=== PATIENT | male | born 1950 | race Caucasian/White ===

== ENCOUNTER → 2018-08-05 | Outpatient (CLI) | payer OTHER ==
[~2018-08-05] MED LIST: LEVO750 PO; SAW PALMETTO; Zithromax500 MG PO
== END | disposition home or self-care (01) ==
LOC: PLD 14:20 → LAB SHORT 14:20
DX: D48.5 Neoplasm of uncertain behavior of skin (principal)
CPT/HCPCS: 88305

== ENCOUNTER → 2019-05-09 | Outpatient (CLI) | payer OTHER ==
[2019-05-09 11:37] LABS: BASOPHILS ABSOLUTE AUTO 0.05 K/mm3 (0.00-0.23); BASOPHILS PERCENT AUTO 1 % (0-2); EOSINOPHILS ABSOLUTE AUTO 0.18 K/mm3 (0.00-0.68); EOSINOPHILS PERCENT AUTO 2 % (0-6); Hematocrit 40.3 % (37.0-53.0); Hemoglobin 14.1 g/dL (13.5-17.5); IMMATURE GRAN ABSOLUTE AUTO 0.04 K/mm3 (0.00-0.10); IMMATURE GRAN PERCENT AUTO 0 % (0-1); LYMPHOCYTES ABSOLUTE AUTO 1.25 K/mm3 (0.84-5.20); LYMPHOCYTES PERCENT AUTO 13 % (21-46); MONOCYTES ABSOLUTE AUTO 0.82 K/mm3 (0.16-1.47); MONOCYTES PERCENT AUTO 8 % (4-13); Mean Corpuscular HGB 31.5 pg (26.0-34.0); Mean Corpuscular Volume 90 fL (80-100); Mean Platelet Volume 8.7 fL (9.1-12.4); NEUTROPHILS ABSOLUTE AUTO 7.54 K/mm3 (1.96-9.15); NEUTROPHILS PERCENT AUTO 76 % (41-73); Platelet Count 288 K/mm3 (150-400); RDW Coefficient Variation 11.4 % (11.7-14.2); RDW Standard Deviation 37.7 fL (35.1-46.3); Red Blood Cell Count 4.47 M/mm3 (4.30-5.90); White Blood Cell Count 9.88 K/mm3 (4.00-11.30)
[2019-05-09 11:53] LABS: Alanine Aminotransfer (ALT/SGP 17 U/L (12-78); Albumin, Blood 3.3 g/dL (3.4-5.0); Albumin/Globulin Ratio 0.7 (0.8-1.8); Alk Phos 126 U/L (40-126); Anion Gap 11 mmol/L (6-16); Aspartate Aminotrans (AST/SGOT 22 U/L (12-37); Bilirubin, Total 0.3 mg/dL (0.1-1.0); Blood Urea Nitrogen 15 mg/dL (8-24); Bun/Creatinine Ratio 17.4 (12.0-20.0); CO2, Blood 24 mmol/L (21-32); Calcium, Blood 8.9 mg/dL (8.5-10.1); Chloride, Blood 104 mmol/L (98-108); Creatinine, Blood 0.86 mg/dL (0.60-1.20); Globulin, Blood 4.9 g/dL (2.2-4.0); Glomerular Filtration Rate >60 (60-); Glucose, Blood 108 mg/dL (70-99); Potassium, Blood 3.7 mmol/L (3.5-5.5); Sodium, Blood 139 mmol/L (136-145); Total Protein, Blood 8.2 g/dL (6.4-8.2)
== END ==
LOC: LAB SHORT 11:33 → LAB EV 11:33
PROVIDERS: Emergency Medicine
DX: C78.7 Secondary malignant neoplasm of liver and intrahepatic bile duct (principal); K86.89 Other specified diseases of pancreas; R10.9 Unspecified abdominal pain
CPT/HCPCS: 80053; 85025; 86301

== ENCOUNTER → 2019-05-18 | Outpatient (CLI) | payer OTHER ==
[~2019-05-18] MED LIST changes: +IBUP400 PO; +MORPHINE; +Rapaflo4 MG PO; +UROXATRAL PO
== END | disposition home or self-care (01) ==
LOC: LAB EV 17:00 → LAB SHORT 17:00
DX: N39.0 Urinary tract infection, site not specified (principal)
CPT/HCPCS: 87086

== ENCOUNTER 2019-05-30 08:00 | Day surgery (SDC) | payer OTHER ==
[~2019-05-30 08:00] MED LIST changes: -IBUP400 PO; -MORPHINE; -Rapaflo4 MG PO; -UROXATRAL PO
--- NOTE | 2019-05-30 11:45 | NUR ---
ARRIVAL TO UNIT PT ARRIVES AND TRANSFERS SELF TO HOSP BED VIA SCOOTING. BAND AID WNL TO L SIDE. PUNCTURE SITE ON L ABD WNL. NEITHER SITES WITH DRAINAGE. ABD TENDER. LUNGS CLEAR. PT USES URINAL TO VOID, CLEAR URINE.
--- NOTE | 2019-05-30 12:53 | NUR ---
PT RESTING IN BED WATCHING TV. DENIES CHANGES IN PAIN OR ABD DISTENTION. TOLERATING SIPS OF WATER. VSS.
--- NOTE | 2019-05-30 13:48 | NUR ---
DISCHARGE PT D/C'D AFTER MONITORING FOR 2 HOURS. BAND AID SITE AND PUNCTURE SITE CHECKED AGAIN. WNL. VSS. PAIN TOLERABLE AND REPORTED "SORE".
[2019-06-06] MEDS ORDERED: Rapaflo4 MG PO (14:11)
[2019-06-06] MEDS ORDERED: IBUP400 PO (14:12)
[2019-06-06] MEDS ORDERED: MORPHINE (14:12)
[2019-06-09] MEDS ORDERED: UROXATRAL PO (09:15)
== END 2019-06-14 22:35 | disposition home or self-care (01) ==
LOC: CT 08:00
DX: K86.89 Other specified diseases of pancreas (principal); C78.7 Secondary malignant neoplasm of liver and intrahepatic bile duct; R59.1 Generalized enlarged lymph nodes; M19.90 Unspecified osteoarthritis, unspecified site; J45.909 Unspecified asthma, uncomplicated; N40.0 Benign prostatic hyperplasia without lower urinary tract symptoms; Z79.899 Other long term (current) drug therapy
CPT/HCPCS: 47000; 77012; 88307; 88341; 88342

== ENCOUNTER 2019-06-09 07:54 | Day surgery (SDC) | payer OTHER ==
[~2019-06-09] VITALS: Ht 172.7 cm; Wt 80.7 kg
[~2019-06-09 07:54] MED LIST changes: +IBUP400 PO; +MORPHINE; +Rapaflo4 MG PO
[2019-06-09] MEDS ORDERED: UROXATRAL PO (09:15)
--- NOTE | 2019-06-09 09:17 | NUR ---
History, Chart, Medications and Allergies reviewed before start of procedure. Patient confirms NPO status and agrees with scheduled surgery. Lungs clear T/O to Auscultation. Patient States Post-Procedure ride home has been arranged. Patient reports completing Chlorhexadine shower X2 prior to admission to hospital. PATIENT REPORTS PAIN IN HIS ABDOMEN AT BASELINE, "FEELS LIKE A CONSTANT STOMACH ACHE". PATIENT HAS READING GLASSES PRESENT AT ADMIT ONLY, NO HEARING DEVICES, DENTURES, JEWELRY OR CONTACTS.
--- NOTE | 2019-06-09 09:42 | NUR ---
PATIENT UP TO BR FOR UNMEASURED VOID.
--- NOTE | 2019-06-09 10:03 | NUR ---
[employer] REPORT COMPLETED AT BEDSIDE WITH JAYSON FLORES.
--- NOTE | 2019-06-09 12:59 | NUR ---
TOOK OVER PATIENT CARE FROM JAYSON MARTINEZ. AFTER REPORT WAS GIVEN.
--- NOTE | 2019-06-09 13:40 | NUR ---
Patient up to Ambulate independently. Gait steady. Discharge instructions reviewed with patient. Patient verbalizes understanding. Copy given to patient to take home. Patient States Post-Procedure ride home has been arranged. Discharged via wheelchair to private car for ride home.
== END 2019-06-09 13:42 | disposition home or self-care (01) ==
LOC: ORSCMMR 07:54 → ORD 10:30 → ORSCMMR 10:30
PROVIDERS: Surgery
PROC: 0JH60WZ Insertion of Totally Implantable Vascular Access Device into Chest Subcutaneous Tissue and Fascia, Open Approach (ICD-10-PCS; principal; 2019-06-09 10:30)
DX: C25.2 Malignant neoplasm of tail of pancreas (principal)
CPT/HCPCS: 77001; A9270-GY; C1788; J0690; J1642; J2250; J2405; J3010; J7120

== ENCOUNTER 2019-08-02 23:41 | Emergency (ER) | payer OTHER ==
[~2019-08-02] VITALS: Ht 172.7 cm; Wt 73.5 kg
[~2019-08-02 23:41] MED LIST changes: +UROXATRAL PO
== END 2019-08-03 05:31 | disposition home or self-care (01) ==
LOC: ER 23:41
DX: Z46.6 Encounter for fitting and adjustment of urinary device (principal); Z85.46 Personal history of malignant neoplasm of prostate; Z85.07 Personal history of malignant neoplasm of pancreas
CPT/HCPCS: 51700; 51702; 99283-25

== ENCOUNTER 2019-08-17 15:35 | Emergency (ER) | payer OTHER ==
[~2019-08-17 15:35] MED LIST changes: +Cipro500 MG PO
== END 2019-08-17 16:53 | disposition left against medical advice (07) ==
LOC: ER 15:35
DX: Z53.21 Procedure and treatment not carried out due to patient leaving prior to being seen by health care provider (principal)

== ENCOUNTER 2020-03-07 19:47 | Emergency (ER) | payer OTHER ==
[~2020-03-07] VITALS: Ht 170.2 cm; Wt 74.8 kg
[2020-03-07 20:13] LABS: BASOPHILS ABSOLUTE AUTO 0.06 K/mm3 (0.00-0.23); BASOPHILS PERCENT AUTO 1 % (0-2); EOSINOPHILS ABSOLUTE AUTO 0.33 K/mm3 (0.00-0.68); EOSINOPHILS PERCENT AUTO 3 % (0-6); Hematocrit 38.5 % (37.0-53.0); Hemoglobin 13.8 g/dL (13.5-17.5); IMMATURE GRAN ABSOLUTE AUTO 0.03 K/mm3 (0.00-0.10); IMMATURE GRAN PERCENT AUTO 0 % (0-1); LYMPHOCYTES ABSOLUTE AUTO 1.85 K/mm3 (0.84-5.20); LYMPHOCYTES PERCENT AUTO 17 % (21-46); MONOCYTES ABSOLUTE AUTO 0.73 K/mm3 (0.16-1.47); MONOCYTES PERCENT AUTO 7 % (4-13); Mean Corpuscular HGB 32.2 pg (26.0-34.0); Mean Corpuscular HGB Conc 35.8 g/dL (31.5-36.5); Mean Corpuscular Volume 90 fL (80-100); Mean Platelet Volume 8.7 fL (9.1-12.4); NEUTROPHILS ABSOLUTE AUTO 7.95 K/mm3 (1.96-9.15); NEUTROPHILS PERCENT AUTO 73 % (41-73); Platelet Count 224 K/mm3 (150-400); RDW Coefficient Variation 12.6 % (11.7-14.2); RDW Standard Deviation 41.3 fL (35.1-46.3); Red Blood Cell Count 4.29 M/mm3 (4.30-5.90); White Blood Cell Count 10.95 K/mm3 (4.00-11.30)
[2020-03-07 20:27] LABS: International Normalized Ratio 0.96; Prothrombin Time Results 10.3 Sec (9.7-11.5)
[2020-03-07 20:37] LABS: Troponin I <0.015 ng/mL (0.000-0.040)
[2020-03-07 20:38] LABS: Alanine Aminotransfer (ALT/SGP 22 U/L (12-78); Albumin, Blood 3.6 g/dL (3.4-5.0); Albumin/Globulin Ratio 0.8 (0.8-1.8); Alk Phos 122 U/L (50-136); Anion Gap 7 mmol/L (6-16); Aspartate Aminotrans (AST/SGOT 19 U/L (12-37); Bilirubin, Total 0.3 mg/dL (0.1-1.0); Blood Urea Nitrogen 21 mg/dL (8-24); Bun/Creatinine Ratio 24.4 (12.0-20.0); CO2, Blood 24 mmol/L (21-32); Calcium, Blood 9.5 mg/dL (8.5-10.1); Chloride, Blood 109 mmol/L (98-108); Creatinine, Blood 0.86 mg/dL (0.60-1.20); Globulin, Blood 4.5 g/dL (2.2-4.0); Glomerular Filtration Rate >60 (60-); Glucose, Blood 135 mg/dL (70-99); Potassium, Blood 3.8 mmol/L (3.5-5.5); Sodium, Blood 140 mmol/L (136-145); Total Protein, Blood 8.1 g/dL (6.4-8.2)
[2020-03-07] MEDS ORDERED: KEYTRUDA100 MG/41 IV (21:23)
== END 2020-03-07 22:40 | disposition home or self-care (01) ==
LOC: ER 19:47
PROVIDERS: Emergency Medicine
DX: M94.0 Chondrocostal junction syndrome [Tietze] (principal); Z85.07 Personal history of malignant neoplasm of pancreas
CPT/HCPCS: 36415; 71046; 80053; 83690; 83880; 84484; 85025; 85610; 93005; 93010; 99284-25

== ENCOUNTER → 2020-08-01 | Outpatient (CLI) | payer OTHER ==
[~2020-08-01] MED LIST changes: +KEYTRUDA100 MG/41 IV
[2020-08-01 10:22] LABS: BASOPHILS ABSOLUTE AUTO 0.04 K/mm3 (0.00-0.23); BASOPHILS PERCENT AUTO 1 % (0-2); EOSINOPHILS ABSOLUTE AUTO 0.21 K/mm3 (0.00-0.68); EOSINOPHILS PERCENT AUTO 3 % (0-6); Hematocrit 37.4 % (37.0-53.0); Hemoglobin 12.5 g/dL (13.5-17.5); IMMATURE GRAN ABSOLUTE AUTO 0.02 K/mm3 (0.00-0.10); IMMATURE GRAN PERCENT AUTO 0 % (0-1); LYMPHOCYTES ABSOLUTE AUTO 1.08 K/mm3 (0.84-5.20); LYMPHOCYTES PERCENT AUTO 16 % (21-46); MONOCYTES ABSOLUTE AUTO 0.71 K/mm3 (0.16-1.47); MONOCYTES PERCENT AUTO 11 % (4-13); Mean Corpuscular HGB 32.7 pg (26.0-34.0); Mean Corpuscular HGB Conc 33.4 g/dL (31.5-36.5); Mean Corpuscular Volume 98 fL (80-100); Mean Platelet Volume 9.2 fL (9.1-12.4); NEUTROPHILS ABSOLUTE AUTO 4.63 K/mm3 (1.96-9.15); NEUTROPHILS PERCENT AUTO 69 % (41-73); Platelet Count 300 K/mm3 (150-400); RDW Coefficient Variation 14.2 % (11.7-14.2); Red Blood Cell Count 3.82 M/mm3 (4.30-5.90); White Blood Cell Count 6.69 K/mm3 (4.00-11.30)
== END | disposition home or self-care (01) ==
LOC: LAB SHORT 09:40 → LAB 09:40
PROVIDERS: Registered Nurse Oncology
DX: D70.1 Agranulocytosis secondary to cancer chemotherapy (principal); T45.1X5A Adverse effect of antineoplastic and immunosuppressive drugs, initial encounter
CPT/HCPCS: 85025

== ENCOUNTER → 2020-09-19 | Outpatient (CLI) | payer OTHER ==
[2020-09-19 10:03] LABS: BASOPHILS ABSOLUTE AUTO 0.05 K/mm3 (0.00-0.23); BASOPHILS PERCENT AUTO 1 % (0-2); EOSINOPHILS ABSOLUTE AUTO 0.28 K/mm3 (0.00-0.68); EOSINOPHILS PERCENT AUTO 6 % (0-6); Hematocrit 31.6 % (37.0-53.0); Hemoglobin 10.8 g/dL (13.5-17.5); IMMATURE GRAN ABSOLUTE AUTO 0.03 K/mm3 (0.00-0.10); IMMATURE GRAN PERCENT AUTO 1 % (0-1); LYMPHOCYTES ABSOLUTE AUTO 0.87 K/mm3 (0.84-5.20); LYMPHOCYTES PERCENT AUTO 17 % (21-46); MONOCYTES ABSOLUTE AUTO 0.66 K/mm3 (0.16-1.47); MONOCYTES PERCENT AUTO 13 % (4-13); Mean Corpuscular HGB Conc 34.2 g/dL (31.5-36.5); Mean Corpuscular Volume 97 fL (80-100); Mean Platelet Volume 8.9 fL (9.1-12.4); NEUTROPHILS ABSOLUTE AUTO 3.22 K/mm3 (1.96-9.15); NEUTROPHILS PERCENT AUTO 63 % (41-73); Platelet Count 232 K/mm3 (150-400); RDW Coefficient Variation 14.6 % (11.7-14.2); RDW Standard Deviation 51.8 fL (35.1-46.3); Red Blood Cell Count 3.27 M/mm3 (4.30-5.90); White Blood Cell Count 5.11 K/mm3 (4.00-11.30)
[2020-09-19 10:35] LABS: Alanine Aminotransfer (ALT/SGP 36 U/L (12-78); Albumin, Blood 3.2 g/dL (3.4-5.0); Albumin/Globulin Ratio 0.9 (0.8-1.8); Alk Phos 111 U/L (50-136); Anion Gap 5 mmol/L (6-16); Aspartate Aminotrans (AST/SGOT 23 U/L (12-37); Bilirubin, Total 0.4 mg/dL (0.1-1.0); Blood Urea Nitrogen 16 mg/dL (8-24); Bun/Creatinine Ratio 21.4 (12.0-20.0); CO2, Blood 26 mmol/L (21-32); Calcium, Blood 8.8 mg/dL (8.5-10.1); Chloride, Blood 108 mmol/L (98-108); Creatinine, Blood 0.75 mg/dL (0.60-1.20); Globulin, Blood 3.7 g/dL (2.2-4.0); Glomerular Filtration Rate >60 (60-); Glucose, Blood 117 mg/dL (70-99); Sodium, Blood 139 mmol/L (136-145); Total Protein, Blood 6.9 g/dL (6.4-8.2)
== END | disposition home or self-care (01) ==
LOC: LAB SHORT 09:46
PROVIDERS: Internal Medicine Hematology & Oncology
DX: C77.2 Secondary and unspecified malignant neoplasm of intra-abdominal lymph nodes (principal)
CPT/HCPCS: 80053; 85025